=== PATIENT | male | born 1965 | race Caucasian/White ===

== ENCOUNTER 2018-04-16 11:34 | Day surgery (SDC) | payer OTHER ==
[2018-04-16] MEDS: SOD CHLORIDE 0.9% 1,000 ML IV (11:00)
[~2018-04-16 11:34] MED LIST: CEFAZOLIN 2 GM/50 ML (PMX) 50 ML IVPB; DESFLURANE 15 MIN; DEXAMETHASONE 4 MG/ML 5 ML INJ; GLYCOPYRROLATE 0.4 MG INJ; ROPIVACAINE 0.5 % 30 ML VIAL
[2018-04-16] MEDS ORDERED: PROPOFOL 20 ML (13:35)
[2018-04-16] MEDS ORDERED: NEOSTIGMINE 3 MG/3 ML SYRINGE (13:35)
[2018-04-16] MEDS ORDERED: ROCURONIUM 50 MG INJ (13:35)
[2018-04-16] MEDS ORDERED: CEFAZOLIN 1 GM INJ (13:35)
[2018-04-16] MEDS ORDERED: ONDANSETRON 4 MG INJ (13:36)
[2018-04-16] MEDS ORDERED: MIDAZOLAM 1 MG/ML 2 ML INJ (13:36)
[2018-04-16] MEDS ORDERED: FENTAnyl 50 MCG/ML VIAL ×2 (13:36→15:12)
[2018-04-16] MEDS ORDERED: DIPHENHYDRAMINE 50 MG INJ IV (14:30)
[2018-04-16] MEDS ORDERED: ONDANSETRON 4 MG INJ IV (14:30)
[2018-04-16] MEDS ORDERED: HYDROmorphONE 1 MG/5 ML IV SYRINGE IV ×2 (14:30)
[2018-04-16] MEDS ORDERED: ALBUTEROL 0.083% (NEB) 2.5 MG/3 ML AMP HHN (14:30)
[2018-04-16] MEDS ORDERED: EPHEDrine SULFATE 50 MG/5 ML SYG IV (14:30)
[2018-04-16] MEDS ORDERED: IPRATROPIUM (NEB) 0.5 MG/2.5 ML AMP HHN (14:30)
[2018-04-16] MEDS ORDERED: MEPERIDINE 25 MG INJ IV (14:30)
[2018-04-16] MEDS ORDERED: OXYCODONE/ACETAMINOPHEN (5/325) TAB PO ×2 (14:30)
[2018-04-16] MEDS ORDERED: FENTAnyl 50 MCG/ML VIAL IV ×3 (14:30)
[2018-04-16] MEDS ORDERED: hydrALAzine 20 MG INJ IV (14:30)
[2018-04-16] MEDS ORDERED: TRIMETHOBENZAMIDE 100 MG/ML VIAL IM (14:30)
[2018-04-16] MEDS ORDERED: MIDAZOLAM 1 MG/ML 2 ML INJ IV (14:30)
[2018-04-16] MEDS ORDERED: LABETALOL HCL 20MG INJ IV (14:30)
[2018-04-16] MEDS ORDERED: LABETALOL HCL 20MG INJ (14:59)
[2018-04-16] MEDS ORDERED: KETOROLAC 30 MG INJ (15:13)
[2018-04-16] MEDS ORDERED: HYDROCODONE/APAP (5/325) TAB PO (15:30)
[2018-04-16] MEDS: HYDROmorphONE 1 MG/5 ML IV SYRINGE IV (16:09)
== END 2018-04-16 17:00 | disposition home or self-care (01) ==
LOC: SDS 11:34
DX: K81.2 Acute cholecystitis with chronic cholecystitis (principal)
CPT/HCPCS: 47562; 88304